=== PATIENT | male | born 1940 | race Caucasian/White ===

== ENCOUNTER 2017-07-22 09:05 | Emergency (ER) | payer MEDICARE ==
[2017-07-22 09:18] VITALS: BP 152/90
[2017-07-22] MEDS ORDERED: Lidocaine 1% with EPINEPHrine 1:100,000 50 ML MDV SUBCUT STA (09:34)
[2017-07-22] MEDS ORDERED: Bacitracin Oint 1 GM U/D Packet TOP ONE (09:34)
[2017-07-22] MEDS ORDERED: Diphtheria,Pertussis(Acell),Tetanus Vaccine 0.5 ML SDV IM ONE (09:37)
--- NOTE | 2017-07-22 09:59 | EDM.PDOC ---
ED HPI GENERAL MEDICAL PROBLEM - General Chief Complaint: Laceration Stated Complaint: LEFT WRIST CUT WITH CHAINSAW Time Seen by Provider: 07/22/17 09:30 Source of Information: Reports: Patient, Family, RN Notes Reviewed History Limitations: Reports: No Limitations - History of Present Illness INITIAL COMMENTS - FREE TEXT/NARRATIVE: 76-year-old gentleman presents emergency department today with laceration to his left wrist, this occurred when he accidentally placed his forearm over a chain saw, he has no functional complaints bleeding is controlled happened at home - Related Data Allergies Allergy/AdvReac Type Severity Reaction Status Date / Time ciprofloxacin [From Cipro] Allergy Cannot Verified 07/22/17 09:18 Remember ciprofloxacin HCl Allergy Cannot Verified 07/22/17 09:18 [From Cipro] Remember lisinopril Allergy Cannot Verified 07/22/17 09:18 Remember nitrofurantoin Allergy Cannot Verified 07/22/17 09:18 [From Macrobid] Remember nitrofurantoin Allergy Cannot Verified 07/22/17 09:18 macrocrystalline Remember [From Macrobid] Wltrvyb-Usf-Usk Reductase Allergy Cannot Verified 07/22/17 09:18 Inhibitor Remember Home Meds: Home Meds HCTZ/Triamterene [Dyazide 25-37.5 MG] 1 tab PO DAILY 02/21/16 [History] L.acidoph,Paracasei, B.lactis [Probiotic] 1 tab PO BID 02/21/16 [History] Multivitamin with Minerals [One Daily Plus Minerals] 2 tab PO DAILY 02/21/16 [ History] Terazosin [Hytrin] 5 mg PO DAILY 02/21/16 [History] Vitamin E 1 cap PO BID 02/21/16 [History] *D-Mannose 1 tab PO BID 04/02/16 [History] Ascorbic Acid [C-1000 with Linda Hips] 1,000 mg PO BID 04/02/16 [History] Aspirin [Ecotrin] 325 mg PO DAILY 04/02/16 [History] Crinumlafilalium 1 tab PO BID 04/02/16 [History] Docusate Sodium [Dss] 250 mg PO DAILY 04/02/16 [History] Hydrocodone/Acetaminophen [Hockley 7.5-325] 1 tab PO Q4H PRN 04/02/16 [History] Metoclopramide HCl [Reglan] 10 mg PO TID PRN 04/02/16 [History] Metoprolol Tartrate 25 mg PO BID 04/02/16 [History] Omeprazole 20 mg PO DAILY 04/02/16 [History] Amiodarone [Cordarone] 200 mg PO BID #45 tablet 04/04/16 [Rx] Warfarin [Coumadin] 2 mg PO QPM #30 tablet 04/14/16 [Rx] Past Medical History HEENT History: Reports: Hard of Hearing, Impaired Vision, Other (See Below) Other HEENT History: broken nose Cardiovascular History: Reports: Bypass, CAD, Heart Murmur Respiratory History: Reports: Sleep Apnea Gastrointestinal History: Reports: Diverticulosis Genitourinary History: Reports: Prostate Disorder, UTI, Recurrent Other Genitourinary History: Glomerular nephritis Musculoskeletal History: Reports: Fracture Neurological History: Reports: Migraines Endocrine/Metabolic History: Reports: Diabetes, Type II - Infectious Disease History Infectious Disease History: Reports: Chicken Pox, Measles, Mumps - Past Surgical History HEENT Surgical History: Reports: Other (See Below) Cardiovascular Surgical History: Reports: Coronary Artery Bypass GI Surgical History: Reports: Appendectomy, Colonoscopy Neurological Surgical History: Reports: Lumbar Spine Social & Family History - Family History HEENT: Reports: Cataract, Impaired Vision Cardiac: Reports: CAD, Stent Respiratory: Reports: Sleep Apnea OBGYN: Reports: Musculoskeletal: Reports: Arthritis, Back pain, Chronic Endocrine/Metabolic: Reports: Diabetes, type II Oncologic: Reports: Colon, Lung - Tobacco Use Smoking Status *Q: Unknown Ever Smoked Years of Tobacco use: 6 Packs/Tins Daily: 0.5 Used Tobacco, but Quit: Yes Month Tobacco Last Used: 1963 Second Hand Smoke Exposure: No - Recreational Drug Use Recreational Drug Use: No ED ROS GENERAL - Review of Systems Review Of Systems: See Below Skin: Reports: Wound Neurological: Reports: No Symptoms ED EXAM, SKIN/RASH Exam: See Below Text/Narrative:: Examination of the left upper extremity he has full range of motion of the wrist full range of motion all digits sensation is intact radial pulses 2+ there is a 3 cm chainsaw laceration to the anterior aspect of the forearm completely through the dermis no subcutaneous structures are involved ED SKIN PROCEDURES - Laceration/Wound Repair Left Wrist Lac/Wound length In cm: 3 Appearance: Subcutaneous, Irregular, Mildly Contaminated Distal NVT: Neuro & Vascular Intact, No Tendon Injury Anesthetic Type: Local Local Anesthesia - Lidocaine (Xylocaine): 1% with EPI Local Anesthetic Volume: 3cc Skin Prep: Saline Saline Irrigation (cc's): 75 Exploration/Debridement/Repair: Wound Explored, In a Bloodless Field, Explored to Base Closed with: Sutures Suture Size: 3-0 # of Sutures: 8 Suture Type: Nylon, Interrupted Sterile Dressing Applied: Nurse Tetanus Status Addressed: Yes (Today) Complications: No Course - Vital Signs Last Recorded V/S: Last Vital Signs Temp 98.1 F 07/22/17 09:16 Pulse 63 07/22/17 09:16 Resp 15 07/22/17 09:16 BP 152/90 H 07/22/17 09:16 Pulse Ox 93 L 07/22/17 09:16 - Orders/Labs/Meds Orders: Active Orders 24 hr Category Date Time Status Vaccines to be Administered [RC] PER UNIT ROUTINE Care 07/22/17 09:37 Ordered Meds: Medications Discontinued Medications Generic Name Dose Route Start Last Admin Trade Name Freq PRN Reason Stop Dose Admin Bacitracin 1 dose 07/22/17 09:34 Bacitracin Oint 1 Gm TOP 07/22/17 09:35 ONETIME ONE Diphtheria/Tetanus/Acell Pertussis 0.5 ml 07/22/17 09:37 07/22/17 09:44 Adacel IM 07/22/17 09:38 0.5 ml .ONCE ONE Administration Lidocaine/Epinephrine 20 ml 07/22/17 09:34 07/22/17 09:44 Xylocaine 1% With Epinephrine 1:100,000 SUBCUT 07/22/17 09:35 20 ml NOW STA Administration Departure - Departure Time of Disposition: 09:58 Disposition: Home, Self-Care 01 Condition: Good Clinical Impression: Laceration of left wrist Qualifiers: Encounter type: initial encounter Qualified Code(s): S61.512A - Laceration without foreign body of left wrist, initial encounter - Discharge Information Referrals: Flaco Aranda MD [Primary Care Provider] - Additional Instructions: Suture removal in 10 days, follow wound care instruction sheet, follow up with primary care for suture removal, call or return to the emergency department worsening of symptoms - My Orders Last 24 Hours: My Active Orders 07/22/17 09:37 Vaccines to be Administered [RC] PER UNIT ROUTINE - Assessment/Plan Last 24 Hours: My Active Orders 07/22/17 09:37 Vaccines to be Administered [RC] PER UNIT ROUTINE Plan: Assessment Acuity = acute Site and laterality = 3 cm laceration left wrist Etiology = secondary to chainsaw injury Manifestations = none Location of injury = Home Lab values = none Plan Suture removal in 10 days, follow wound care instruction sheet follow-up with primary care Patient was in agreement with the plan all questions were answered, they were instructed to return to the emergency department or call for worsening symptoms. This note was dictated using [employer] voice recognition software please call with any questions.
== END 2017-07-22 10:11 | disposition home or self-care (01) ==
LOC: JP.ED 09:05
DX: S61.512A Laceration without foreign body of left wrist, initial encounter (principal); I25.10 Atherosclerotic heart disease of native coronary artery without angina pectoris; E11.9 Type 2 diabetes mellitus without complications; Z23 Encounter for immunization; Z88.1 Allergy status to other antibiotic agents; Z88.8 Allergy status to other drugs, medicaments and biological substances; Z79.01 Long term (current) use of anticoagulants; Z79.899 Other long term (current) drug therapy; Z87.440 Personal history of urinary (tract) infections; Z95.1 Presence of aortocoronary bypass graft; Z90.49 Acquired absence of other specified parts of digestive tract; Z98.890 Other specified postprocedural states; Y92.009 Unspecified place in unspecified non-institutional (private) residence as the place of occurrence of the external cause; W27.0XXA Contact with workbench tool, initial encounter
CPT/HCPCS: 12002; 90471; 90715; 99283; A4217

== ENCOUNTER 2020-08-07 12:48 | Emergency (ER) | payer MEDICARE, OTHER ==
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
[2020-08-07] MEDS ORDERED: Acetaminophen 325 MG Tab PO ONE (13:28)
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
--- NOTE | 2020-08-07 14:24 | CR ---
Wrist Comp Min 3V Lt, Hand Comp Min 3V Lt CLINICAL HISTORY: Injury FINDINGS: There are severe osteoarthritic changes with narrowing of the radiocarpal joint. There is also some calcification of the articular cartilage as well as the triangular fibrocartilage complex. No acute fracture or subluxation is seen IMPRESSION: Advanced arthritic changes No fracture or subluxation Wrist Comp Min 3V Lt, Hand Comp Min 3V Lt FINDINGS: There is no acute fracture or dislocation of the hand. There is severe joint space narrowing and periarticular spurring at the first carpal metacarpal joint. There is severe interphalangeal joint degenerative changes. This could be osteoarthritis possibly erosive osteoarthritis. Rheumatoid variant is not excluded. Impression: No fracture or dislocation Severe arthritic changes are described above.
--- NOTE | 2020-08-07 14:25 | CR ---
Fingers Thumb Rt F5 CLINICAL HISTORY: Injury FINDINGS: There is a marginal articular fracture at the base of the first proximal phalanx. This is minimally displaced. There are arthritic changes in the wrist. Impression: Fracture, base of first proximal phalanx
[2020-08-07 14:59] VITALS: BP 197/129; PULSE 57
== END 2020-08-07 15:37 | disposition home or self-care (01) ==
LOC: JP.ED 12:48
DX: S06.0X9A Concussion with loss of consciousness of unspecified duration, initial encounter (principal); S01.01XA Laceration without foreign body of scalp, initial encounter; S62.511A Displaced fracture of proximal phalanx of right thumb, initial encounter for closed fracture; S66.912A Strain of unspecified muscle, fascia and tendon at wrist and hand level, left hand, initial encounter; S63.602A Unspecified sprain of left thumb, initial encounter; I25.10 Atherosclerotic heart disease of native coronary artery without angina pectoris; E11.9 Type 2 diabetes mellitus without complications; Z88.1 Allergy status to other antibiotic agents; Z88.8 Allergy status to other drugs, medicaments and biological substances; Z79.82 Long term (current) use of aspirin; Z79.899 Other long term (current) drug therapy; Z95.1 Presence of aortocoronary bypass graft; Z90.49 Acquired absence of other specified parts of digestive tract; V86.59XA Driver of other special all-terrain or other off-road motor vehicle injured in nontraffic accident, initial encounter
CPT/HCPCS: 70450; 72125; 73110; 73130; 73140; 99283; 99285; A9270

== ENCOUNTER 2022-10-08 17:24 | Emergency (ER) | payer OTHER ==
[2022-10-08] MEDS ORDERED: Sodium Chloride 0.9% 10 ML Syringe FLUSH PRN (18:05)
[2022-10-08] MEDS ORDERED: Pantoprazole 40 MG Vial IVPUSH ONE (18:32)
[2022-10-08 18:40] LABS: ESTIMATED GFR 51 mL/min (>60)
[2022-10-08] MEDS ORDERED: Sodium Chloride 0.9% 1,000 ML IV ONE (18:57)
[2022-10-08 19:35] VITALS: BP 138/83; PULSE 69
== END 2022-10-08 20:25 | disposition left against medical advice (07) ==
LOC: JP.ED 17:24
DX: E86.0 Dehydration (principal); K56.50 Intestinal adhesions [bands], unspecified as to partial versus complete obstruction; R74.8 Abnormal levels of other serum enzymes; D72.829 Elevated white blood cell count, unspecified; I25.10 Atherosclerotic heart disease of native coronary artery without angina pectoris; E11.9 Type 2 diabetes mellitus without complications; Z88.1 Allergy status to other antibiotic agents; Z88.8 Allergy status to other drugs, medicaments and biological substances; Z79.899 Other long term (current) drug therapy
CPT/HCPCS: 36415; 71045; 74176; 80053; 83605; 83690; 84145; 85025; 85610; 85730; 87635; 96360; 99284; C9113; J3490; J7030; U0002

== ENCOUNTER 2022-10-09 07:11 | Inpatient (IN) | payer OTHER ==
[2022-10-09] MEDS ORDERED: Sodium Chloride 0.9% 1,000 ML IV ONE (07:17)
[2022-10-09] MEDS ORDERED: Midazolam 1 MG/ML 2 ML SDV IVPUSH ONE (07:28)
[2022-10-09 07:38] LABS: ESTIMATED GFR 30 mL/min (>60)
[2022-10-09] MEDS ORDERED: Ondansetron 4 MG/2 ML SDV IVPUSH ONE (11:16)
[2022-10-09] MEDS ORDERED: fentaNYL 50 MCG/ML SDV IVPUSH ONE (11:23)
[2022-10-09] MEDS ORDERED: Morphine 4 MG/ML Syringe IVPUSH ONE (14:27)
[2022-10-09] MEDS ORDERED: Morphine 10 MG/0.5 ML Oral Syringe BUCCAL PRN (15:47)
[2022-10-09] MEDS ORDERED: Ondansetron 4 MG/2 ML SDV IV PRN (15:47)
[2022-10-09] MEDS ORDERED: LORazepam ORAL Concentrate 1MG/0.5ML U/D BUCCAL PRN (15:47)
[2022-10-09 17:30] VITALS: BP 100/59; PULSE 115
== END 2022-10-09 15:33 | disposition expired | DRG 951 ==
LOC: JP.ED 07:11 → JP.2SS 14:07
PROVIDERS: ADMIT Hospitalist; ATTEND Hospitalist
DX: K56.609 Unspecified intestinal obstruction, unspecified as to partial versus complete obstruction (principal); K55.029 Acute infarction of small intestine, extent unspecified; Z51.5 Encounter for palliative care; K55.069 Acute infarction of intestine, part and extent unspecified; E86.0 Dehydration; R79.89 Other specified abnormal findings of blood chemistry; Z66 Do not resuscitate; H54.7 Unspecified visual loss; H91.90 Unspecified hearing loss, unspecified ear; I25.10 Atherosclerotic heart disease of native coronary artery without angina pectoris; G47.30 Sleep apnea, unspecified; I48.91 Unspecified atrial fibrillation; K57.90 Diverticulosis of intestine, part unspecified, without perforation or abscess without bleeding; N42.9 Disorder of prostate, unspecified; G43.909 Migraine, unspecified, not intractable, without status migrainosus; E11.9 Type 2 diabetes mellitus without complications; Z86.19 Personal history of other infectious and parasitic diseases; Z79.82 Long term (current) use of aspirin; Z79.01 Long term (current) use of anticoagulants; Z88.1 Allergy status to other antibiotic agents; Z88.8 Allergy status to other drugs, medicaments and biological substances; Z79.899 Other long term (current) drug therapy; Z95.1 Presence of aortocoronary bypass graft; Z87.440 Personal history of urinary (tract) infections; Z90.49 Acquired absence of other specified parts of digestive tract; Z95.2 Presence of prosthetic heart valve
CPT/HCPCS: 36415; 43752 ×2; 71045 ×2; 74018 ×2; 80048; 83605; 85025; J2250; J2405; J3010; J7030; 96361; 96374; 96375; 99285-25; J2270